=== PATIENT | female | born 1995 | race Caucasian/White ===

== ENCOUNTER 2017-09-20 18:06 | Emergency (ER) | payer OTHER ==
[~2017-09-20] VITALS: Ht 182.9 cm; Wt 107.5 kg
[2017-09-20 18:44] LABS: HEMATOCRIT 44.7 % (36.0-46.0); HEMOGLOBIN 15.5 G/DL (11.9-15.5); MCH 31.5 PG (29.0-34.0); MCHC 34.7 G/DL (30.0-36.0); MCV 90.9 FL (83-99); PLATELET COUNT 228 K/uL (156-360); RBC DIS.WIDTH-CV 12.7 % (11.8-14.6); RBC DIS.WIDTH-SD 41.6 % (39-53); RED BLOOD COUNT 4.92 M/uL (3.80-5.20); WHITE BLOOD COUNT 15.2 K/uL (4.1-10.2)
[2017-09-20 18:52] LABS: ALBUMIN 4.4 g/dL (3.2-4.8); CHLORIDE 113 mEq/L (99-109); POTASSIUM 3.2 mEq/L (3.7-5.4); SODIUM 140 mEq/L (136-147)
[2017-09-20 18:55] LABS: GLUCOSE 85 mg/dL (70-99); TOTAL PROTEIN 7.5 g/dL (6.4-8.3)
[2017-09-20 18:56] LABS: TOTAL BILIRUBIN 0.5 mg/dL (0.0-1.0)
[2017-09-20 18:58] LABS: ALKALINE PHOSPHATASE 79 IU/L (3-129); CREATININE 1.2 mg/dL (0.6-1.3); GFR ESTIMATE (CALCULATED) > 59 mL/min/
[2017-09-20 18:59] LABS: UREA NITROGEN (BUN) 13 mg/dL (9-23)
[2017-09-20 19:00] LABS: AST (GOT) 24 IU/L (2-34)
[2017-09-20] MEDS ORDERED: FLEXERIL10 MG PO (19:00)
[2017-09-20 19:01] LABS: ALT (GPT) 20 IU/L (3-49)
[2017-09-20] MEDS ORDERED: NORCO 5/3251 TABLET PO (22:56)
[2017-09-20 23:38] VITALS: BP 117/60
== END 2017-09-20 23:38 | disposition home or self-care (01) ==
LOC: EME 18:06
PROVIDERS: Emergency Medicine Emergency Medical Services
DX: S09.90XA Unspecified injury of head, initial encounter (principal); S16.1XXA Strain of muscle, fascia and tendon at neck level, initial encounter; M54.5 Low back pain; R11.0 Nausea; V00.321A Fall from snow-skis, initial encounter; Y93.23 Activity, snow (alpine) (downhill) skiing, snowboarding, sledding, tobogganing and snow tubing; Y92.39 Other specified sports and athletic area as the place of occurrence of the external cause
CPT/HCPCS: 70450; 71045; 72040; 72100; 80053; 81003; 85027; 99281; 99284